=== PATIENT | female | born 1965 | race Caucasian/White ===

== ENCOUNTER 2019-04-13 13:35 | Emergency (ER) | payer BC ==
--- NOTE | 2019-04-13 14:23 | EDM.PDOC ---
Scribed by Natali Spence 04/13/19 [id number] for Marli Marquez NP ED HPI GENERAL MEDICAL PROBLEM - General Chief Complaint: Genitourinary Problem Stated Complaint: UTI [id number] Time Seen by Provider: 04/13/19 14:00 Source of Information: Reports: Patient, RN, RN Notes Reviewed History Limitations: Reports: No Limitations - History of Present Illness INITIAL COMMENTS - FREE TEXT/NARRATIVE: Patient presents to ER with complaint of urinary burning that began a few days ago. She states she had back pain as well a few days ago. She has had frequency and urgency. No fever, chills, nausea or vomiting. Onset: Gradual Duration: Getting Worse Location: Reports: Back Quality: Reports: Burning Severity: Moderate Improves with: Reports: None Worsens with: Reports: None Associated Symptoms: Reports: No Other Symptoms Pelvic Pain Score (Numeric/FACES): 6 - Related Data Allergies Allergy/AdvReac Type Severity Reaction Status Date / Time azithromycin [From Zithromax] Allergy Stomach Verified 04/13/19 13:46 Upset ED ROS GENERAL - Review of Systems Review Of Systems: ROS reveals no pertinent complaints other than HPI. ED EXAM, RENAL/ - Physical Exam Exam: See Below Exam Limited By: No Limitations General Appearance: Alert, WD/WN, No Apparent Distress Eye Exam: Bilateral Eye: EOMI, Normal Inspection, PERRL Ears: Normal External Exam, Normal Canal, Hearing Grossly Normal, Normal TMs Nose: Normal Inspection, Normal Mucosa, No Blood Throat/Mouth: Normal Inspection, Normal Lips, Normal Teeth, Normal Gums, Normal Oropharynx, Normal Voice, No Airway Compromise Head: Atraumatic, Normocephalic Neck: Normal Inspection, Supple, Non-Tender, Full Range of Motion Respiratory/Chest: No Respiratory Distress, Lungs Clear, Normal Breath Sounds, No Accessory Muscle Use, Chest Non-Tender Cardiovascular: Normal Peripheral Pulses, Regular Rate, Rhythm, No Edema, No Gallop, No JVD, No Murmur, No Rub GI/Abdominal: Normal Bowel Sounds, Soft, Non-Tender, No Organomegaly, No Distention, No Abnormal Bruit, No Mass (Female) Exam: Deferred Rectal (Female) Exam: Deferred Back Exam: Normal Inspection, Full Range of Motion, NT Extremities: Normal Inspection, Normal Range of Motion, Non-Tender, Normal Capillary Refill, No Pedal Edema Neurological: Alert, Oriented, CN II-XII Intact, Normal Cognition, Normal Gait, Normal Reflexes, No Motor/Sensory Deficits Psychiatric: Normal Affect, Normal Mood Skin Exam: Warm, Dry, Intact, Normal Color, No Rash Lymphatic: No Adenopathy Course - Vital Signs Last Recorded V/S: Last Vital Signs Temp 36.4 C 04/13/19 13:48 Pulse 70 04/13/19 13:48 Resp 16 04/13/19 13:48 BP 122/62 04/13/19 13:48 Pulse Ox 96 04/13/19 13:48 - Orders/Labs/Meds Orders: Active Orders 24 hr Category Date Time Status CULTURE URINE [RM] Stat Lab 04/13/19 13:46 Received Labs: Laboratory Tests 04/13/19 Range/Units 13:46 Urine Color Yellow (YELLOW) Urine Appearance Turbid (CLEAR) Urine pH 6.5 (5.0-9.0) Ur Specific Golden >= 1.030 (1.005-1.030) Urine Protein >=300 H (NEGATIVE) Urine Glucose (UA) Negative (NEGATIVE) Urine Ketones Negative (NEGATIVE) Urine Occult Blood Large H (NEGATIVE) Urine Nitrite Negative (NEGATIVE) Urine Bilirubin Negative (NEGATIVE) Urine Urobilinogen 0.2 (0.2-1.0) mg/dL Ur Leukocyte Esterase Large H (NEGATIVE) Urine RBC 50-75 H /HPF Urine WBC >100 H (0-5/HPF) /HPF Ur Epithelial Cells Few (NOT SEEN) /HPF Amorphous Sediment Moderate H (NOT SEEN) /HPF Urine Bacteria Few (0-FEW/HPF) /HPF Urine Mucus Few H (NOT SEEN) /LPF Departure - Departure Time of Disposition: 14:16 Disposition: Home, Self-Care 01 Condition: Fair Clinical Impression: UTI, Urinary tract infectious disease - Discharge Information *PRESCRIPTION DRUG MONITORING PROGRAM REVIEWED*: No *COPY OF PRESCRIPTION DRUG MONITORING REPORT IN PATIENT CLAIRE: No Instructions: Antibiotic Medicine, Adult, [id number], Urinary Tract Infection , Adult, [id number] Forms: ED Department Discharge Additional Instructions: RX: Macrobid, Pyridium Drink plenty of water and cranberry juice Follow up with your primary care facility next week if no improvement I have read and agree with the documentation that has been completed regarding this visit. By signing this record, I attest that the documentation was completed in my physical presence and is an accurate record of the encounter.
== END 2019-04-13 14:19 | disposition home or self-care (01) ==
LOC: DL.ED 13:35
DX: N39.0 Urinary tract infection, site not specified (principal); Z88.1 Allergy status to other antibiotic agents
CPT/HCPCS: 81001; 87086; 87088; 87186; 99283

== ENCOUNTER 2021-07-24 08:51 | Emergency (ER) | payer BC ==
[2021-07-24] MEDS ORDERED: HYDROmorphone 0.5 MG/0.5 ML Syringe IVPUSH ONE ×2 (09:21→11:37)
[2021-07-24] MEDS ORDERED: Ondansetron 4 MG/2 ML SDV IVPUSH ONE (09:21)
--- NOTE | 2021-07-24 10:24 | CT ---
PROCEDURE INFORMATION: Exam: CT Head Without Contrast Exam date and time: 07/24/2021 9:35 AM Age: 56 years old Clinical indication: Other: Fall, pain head to low back; Additional info: Head pain low back pn TECHNIQUE: Imaging protocol: Computed tomography of the head without contrast. Radiation optimization: All CT scans at this facility use at least one of these dose optimization techniques: automated exposure control; mA and/or kV adjustment per patient size (includes targeted exams where dose is matched to clinical indication); or iterative reconstruction. COMPARISON: No relevant prior studies available. FINDINGS: Brain: There is no acute hemorrhage or infarction, mass or extra-axial collection. Cerebral ventricles: No ventriculomegaly. Paranasal sinuses: There is bilateral inferior maxillary sinus disease. There is patchy mild to moderate ethmoid sinus disease. Mastoid air cells: Visualized mastoid air cells are well aerated. Bones/joints: Unremarkable. No acute fracture. Soft tissues: There is a posterior left temporal-occipital scalp contusion. IMPRESSION: Posterior left temporal-occipital scalp soft tissue injury. There is no acute intracranial process or fracture.
--- NOTE | 2021-07-24 10:24 | EDM.PDOC ---
ED HPI GENERAL MEDICAL PROBLEM - General Chief Complaint: Back Pain or Injury Stated Complaint: [id number] FELL DOWN STAIRS BUMP ON HEAD CAN'T MOV Time Seen by Provider: 07/24/21 09:15 Source of Information: Reports: Patient, Family History Limitations: Reports: Intoxication - History of Present Illness INITIAL COMMENTS - FREE TEXT/NARRATIVE: 56 y/o F c/o severe L side headache and low back pn after falling down a step and hitting her head on a concrete floor. Pt pt states she was intoxicated last night and was trying to walk in her house when she fell down a step and landed on the concrete floor. People with her state no LOC and pt was assisted to her bed. This morning the pt reports severe 10/10 L head pn and 10/10 low back pn. Pt states she cannot walk without severe pn. Reportedly 5 people had to help pt get into a car to bring her here. No blood thinners. Denies NV, vision prob, cp, abd pn, cervical spine pn, pelvic pn, incontinence, bleeding, . Hx of complete hysterectomy in 2007. Takes Temazepam at night to sleep. Pt is here with her who states pt is not acting like herself. She states she still feels drunk Onset: Today Duration: Hour(s): Location: Reports: Head, Back Quality: Reports: Sharp Severity: Severe Improves with: Reports: None Worsens with: Reports: Movement Lower Back Pain Score (Numeric/FACES): 8 - Related Data Allergies Allergy/AdvReac Type Severity Reaction Status Date / Time egg Allergy Severe Swelling Verified 07/24/21 09:28 azithromycin [From Zithromax] Allergy Stomach Verified 04/13/19 13:46 Upset Past Medical History HEENT History: Reports: None Cardiovascular History: Reports: None Respiratory History: Reports: None Gastrointestinal History: Reports: None Genitourinary History: Reports: None JOB SUPERINTENDENT History: Reports: None Musculoskeletal History: Reports: None Neurological History: Reports: None Psychiatric History: Reports: None Endocrine/Metabolic History: Reports: None Hematologic History: Reports: None Immunologic History: Reports: None Oncologic (Cancer) History: Reports: None Dermatologic History: Reports: None - Past Surgical History Female Surgical History: Reports: Hysterectomy ED ROS GENERAL - Review of Systems Review Of Systems: Comprehensive ROS is negative, except as noted in HPI. ED EXAM,LOWER BACK PAIN/INJURY - Physical Exam Exam: See Below Exam Limited By: No Limitations General Appearance: Alert, Anxious Eye Exam: Bilateral Eye: Nystagmus Ears: Normal External Exam, Normal Canal, Hearing Grossly Normal, Normal TMs Nose: Normal Inspection, Normal Mucosa, No Blood Throat/Mouth: Normal Inspection, Normal Lips, Normal Teeth, Normal Gums, Normal Oropharynx, Normal Voice, No Airway Compromise Head: Atraumatic, Normocephalic Neck: Supple, Non-Tender Respiratory/Chest: Lungs Clear, Normal Breath Sounds, No Accessory Muscle Use Cardiovascular: Normal Peripheral Pulses, Tachycardia GI/Abdominal: Soft, Non-Tender (Female) Exam: Deferred Rectal (Female) Exam: Deferred Back Exam: Normal Inspection, Full Range of Motion Extremities: Normal Inspection, Other (pt refuses to move her left leg because of the pain in her back. No deformity or tenderness to any extremity. No pedal edema. Pedal pulses intact. Sensation intact. ) Neurological: Alert, Oriented x 3 Psychiatric: Anxious, Other (extremely hystrionic) Skin Exam: Warm, Intact Course - Vital Signs Last Recorded V/S: Last Vital Signs Temp 99.0 F 07/24/21 09:13 Pulse 104 H 07/24/21 09:13 Resp 24 H 07/24/21 09:13 BP 137/109 H 07/24/21 09:13 Pulse Ox 95 07/24/21 09:13 - Orders/Labs/Meds Orders: Active Orders 24 hr Category Date Time Status DRUG SCREEN URINE BIORAD [URCHEM] Stat Lab 07/24/21 09:22 Ordered Labs: Laboratory Tests 07/24/21 07/24/21 Range/Units 09:25 09:25 WBC 5.9 (5.0-10.0) 10^3/uL RBC 4.41 (4.2-5.4) 10^6/uL Hgb 13.6 (12.0-16.0) g/dL Hct 40.4 (37.0-47.0) % MCV 91.6 (80-100) fL MCH 30.8 (27.0-34.0) pg MCHC 33.7 (33.0-35.0) g/dL Plt Count 297 (150-450) 10^3/uL Neut % (Auto) 55.0 (42.2-75.2) % Lymph % (Auto) 32.0 (20.5-50.1) % Wood % (Auto) 8.8 H (2-8) % Eos % (Auto) 3.7 H (1.0-3.0) % Baso % (Auto) 0.5 (0.0-1.0) % Sodium 147 H (136-145) mmol/L Potassium 3.8 (3.5-5.1) mmol/L Chloride 108 H (98-107) mmol/L Carbon Dioxide 22 (21-32) mmol/L Anion Gap 20.8 H (7-13) mEq/L BUN 14 (7-18) mg/dL Creatinine 0.80 (0.55-1.02) mg/dL Est Cr Clr Drug Dosing 72.34 mL/min Estimated GFR (MDRD) > 60 BUN/Creatinine Ratio 17.5 (No establ ref range) Glucose 98 (70-99) mg/dL Calcium 8.5 (8.5-10.1) mg/dL Total Bilirubin 0.3 (0.2-1.0) mg/dL AST 20 (15-37) U/L ALT 20 (14-59) U/L Alkaline Phosphatase 69 (46-116) U/L Total Protein 7.7 (6.4-8.2) g/dL Albumin 4.4 (3.4-5.0) g/dL Globulin 3.3 Albumin/Globulin Ratio 1.3 Ethyl Alcohol 150 (0) mg/dL Meds: Medications Discontinued Medications Generic Name Dose Route Start Last Admin Trade Name Freq PRN Reason Stop Dose Admin Hydromorphone HCl 0.5 mg 07/24/21 09:21 07/24/21 09:32 Hydromorphone 0.5 Mg/0.5 Ml Syringe IVPUSH 07/24/21 09:22 0.5 mg ONETIME ONE Administration Ondansetron HCl 4 mg 07/24/21 09:21 07/24/21 09:30 Ondansetron 4 Mg/2 Ml Sdv IVPUSH 07/24/21 09:22 4 mg ONETIME ONE Administration - Re-Assessments/Exams Free Text/Narrative Re-Assessment/Exam: 07/24/21 11:[address] Mckeon a neurosurgeon at [facility] about the pts condition and CT results. He advised no surgery necessary and to have pt rest her injuries and have her pain controlled. 07/24/21 11:27 I discussed the pts condition, exam, ct, adn lab results with her adn her . They understand that she has a transverse process fracture and that she needs to rest and ice her injury. I will give her an Rx for pain as needed and instruct her to follow up with neurosurgery or return to the ER if she develops any neurological symptoms Departure - Departure Time of Disposition: 11:24 Disposition: Home, Self-Care 01 Condition: Fair Clinical Impression: Fracture of transverse process of spine without spinal cord lesion - Discharge Information *PRESCRIPTION DRUG MONITORING PROGRAM REVIEWED*: Not Applicable *COPY OF PRESCRIPTION DRUG MONITORING REPORT IN PATIENT CLAIRE: Not Applicable Instructions: Transverse Process Fracture Forms: ED Department Discharge Additional Instructions: RX: [place] Use tylenol and motrin when possible for pain. Rest adn ice your injury. You are going to very sore for several weeks. If any new symptoms or concerns develop contact your primary care facility or return to the ER. Sepsis Event Note (ED) - Focused Exam Vital Signs: Vital Signs Temp Pulse Resp BP Pulse Ox 07/24/21 09:13 99.0 F 104 H 24 H 137/109 H 95 - My Orders Last 24 Hours: My Active Orders 07/24/21 09:22 DRUG SCREEN URINE BIORAD [URCHEM] Stat - Assessment/Plan Last 24 Hours: My Active Orders 07/24/21 09:22 DRUG SCREEN URINE BIORAD [URCHEM] Stat
--- NOTE | 2021-07-24 10:24 | CT ---
PROCEDURE INFORMATION: Exam: CT Thoracic Spine Without Contrast Exam date and time: 07/24/2021 9:35 AM Age: 56 years old Clinical indication: Other: Fall, pain head to low back; Additional info: Head pain low back pn TECHNIQUE: Imaging protocol: Computed tomography images of the thoracic spine without contrast. Radiation optimization: All CT scans at this facility use at least one of these dose optimization techniques: automated exposure control; mA and/or kV adjustment per patient size (includes targeted exams where dose is matched to clinical indication); or iterative reconstruction. COMPARISON: No relevant prior studies available. FINDINGS: Alignment is normal. There is no fracture or vertebral body height loss.. There is no acute disc herniation or stenosis. There is no paraspinal or retroperitoneal hematoma. IMPRESSION: No acute thoracic spine fracture.
--- NOTE | 2021-07-24 10:24 | CT ---
PROCEDURE INFORMATION: Exam: CT Lumbar Spine Without Contrast Exam date and time: 07/24/2021 9:35 AM Age: 56 years old Clinical indication: Other: Low back pain, fall; Additional info: Head pain low back pn TECHNIQUE: Imaging protocol: Computed tomography images of the lumbar spine without contrast. Radiation optimization: All CT scans at this facility use at least one of these dose optimization techniques: automated exposure control; mA and/or kV adjustment per patient size (includes targeted exams where dose is matched to clinical indication); or iterative reconstruction. COMPARISON: No relevant prior studies available. FINDINGS: Vertebrae: There is a nondisplaced left L2 transverse process fracture. There is a very subtle nondisplaced fracture of the left L3 transverse process. Lumbar alignment is normal. L1-L2: No significant disc protrusion. No severe spinal canal stenosis. No significant neural foraminal narrowing. L2-L3: No significant disc protrusion. No severe spinal canal stenosis. No significant neural foraminal narrowing. L3-L4: No significant disc protrusion. No severe spinal canal stenosis. No significant neural foraminal narrowing. L4-L5: At L4-L5 there is a large broad disc bulge possibly with a central herniation component to be correlated for L5 radiculopathy. L5-S1: No significant disc protrusion. No severe spinal canal stenosis. No significant neural foraminal narrowing. Sacrum/coccyx: There is no fracture of the visualized bony pelvis, sacrum or coccyx. Soft tissues: Unremarkable. Other findings: There is no retroperitoneal or paraspinal hematoma. IMPRESSION: There are acute nondisplaced fractures of the left L2 and L3 transverse processes.
[2021-07-24 10:25] LABS: ANION GAP 20.8 mEq/L (7-13); CHLORIDE,CL 108 mmol/L (98-107); SODIUM,NA 147 mmol/L (136-145)
== END 2021-07-24 12:32 | disposition home or self-care (01) ==
LOC: DL.ED 08:51
DX: S32.029A Unspecified fracture of second lumbar vertebra, initial encounter for closed fracture (principal); S32.039A Unspecified fracture of third lumbar vertebra, initial encounter for closed fracture; Z88.1 Allergy status to other antibiotic agents; Z91.012 Allergy to eggs; Z90.710 Acquired absence of both cervix and uterus; W10.9XXA Fall (on) (from) unspecified stairs and steps, initial encounter
CPT/HCPCS: 36415; 70460; 72129; 72131; 80053; 80307; 85025; 96374; 96375; 96376; 99284; J1170; J2405